=== PATIENT | female | born 1995 | race Caucasian/White ===

== ENCOUNTER 2020-09-12 13:00 | Emergency (ER) | payer OTHER ==
[2020-09-12 13:12] VITALS: BP 135/87; PULSE 77; RESP 18; TEMP 98.7
--- NOTE | 2020-09-12 14:27 | XR ---
EXAMINATION TYPE: XR humerus RT DATE OF EXAM: 09/12/2020 COMPARISON: NONE HISTORY: Pain TECHNIQUE: 2 views submitted. FINDINGS: The osseous structures are intact and the joint spaces are preserved. IMPRESSION: 1. No acute fracture or dislocation.
[2020-09-12] MEDS ORDERED: LIDOCAINE 1% INJ 10MG/ML (20 ML MDV) SQ ONE (15:32)
--- NOTE | 2020-09-12 16:22 | ED ---
General Adult HPI - General Chief complaint: Extremity Problem,Nontraumatic Stated complaint: Arm numbness Time Seen by Provider: 09/12/20 14:00 Source: patient Mode of arrival: ambulatory Limitations: no limitations - History of Present Illness Initial comments: Patient is a 24-year-old female presenting to emergency Department with complaints of right upper arm pain for the last couple days. Patient states she has a control implant in her right upper arm that's been there about a year or longer than it was supposed to be. Patient states that she has yet to follow-up with her SCIENTIFIC SPECIALIST for removal. She denies any fevers or chills, no swelling, redness to the area. She denies any trauma to the right upper arm. No previous surgeries. She has no further complaints at this time. Her vital signs are stable upon arrival. - Related Data Home Medications Medication Instructions Recorded Confirmed No Known Home Medications 09/12/20 09/12/20 Allergies Allergy/AdvReac Type Severity Reaction Status Date / Time No Known Allergies Allergy Verified 09/12/20 14:27 Review of Systems ROS Statement: Those systems with pertinent positive or pertinent negative responses have been documented in the HPI. ROS Other: All systems not noted in ROS Statement are negative. Past Medical History Past Medical History: No Reported History History of Any Multi-Drug Resistant Organisms: None Reported Past Surgical History: Adenoidectomy, Appendectomy, Section, Tonsillectomy Past Psychological History: No Psychological Hx Reported Smoking Status: Current every day smoker Past Alcohol Use History: None Reported Past Drug Use History: None Reported General Exam - General Exam Comments Initial Comments: GENERAL: Patient is well-developed and well-nourished. Patient is nontoxic and in no acute distress. HEAD: Atraumatic, normocephalic. EYES: Pupils equal round and reactive to light, extraocular movements intact, sclera anicteric, conjunctiva are normal. Eyelids were unremarkable. ENT: Nares patent, oropharynx clear without exudates. Moist mucous membranes. NECK: Normal range of motion, supple without lymphadenopathy or JVD. LUNGS: Unlabored respirations. Breath sounds clear to auscultation bilaterally and equal. No wheezes rales or rhonchi. HEART: Regular rate and rhythm without murmurs, rubs or gallops. ABDOMEN: Soft, nontender, normoactive bowel sounds. No guarding, no rebound. No masses appreciated. : Deferred MUSCULOSKELETAL: Patient is full range of motion of her right upper arm and shoulder. Normal extremities with adequate strength and normal range of motion, no pitting or edema. No clubbing or cyanosis. NEUROLOGICAL: Patient is alert and oriented x 3. Normal speech, normal gait. PSYCH: Normal mood, normal affect. SKIN: Warm, Dry, normal turgor, no rashes or lesions noted. Patient has control implanon,in her right upper arm, no evidence of infection, no swelling, no erythema Limitations: no limitations Course Vital Signs 09/12/20 13:09 Temperature 98.7 F Pulse Rate 77 Respiratory 18 Rate Blood Pressure 135/87 O2 Sat by Pulse 100 Oximetry Procedures - Laura Protocol (Time Out) Procedure Performed:: foreign body removal right arm. Performing Provider: Amber Rutledge Nurse: David Sim Timeout Date: 09/12/20 Timeout Time: 16:00 Patient Identification (2 identifiers required): Chart, Verbal, Arm Band, Name, Birthdate Patient/Legal In Classroom Tutor has Confirmed: Identity, Site, Procedure, Consent Site: right bicep Site Marked: Yes Site Verified With Patient/Guardian: Yes - Forgein Body Removal Soft Tissue Consent Obtained: written consent Site: upper extremity (Right upper arm) Anesthetic Used: lidocaine 1% Amount (mLs): 2 Foreign Body Suspected: Other ( control implant) Foreign Body Removed: yes Foreign Body Removal Technique: Forceps Patient Tolerated Procedure: well Additional Comments: Wound require one stitch for closure, 1, 4-0 suture was placed. Medical Decision Making - Medical Decision Making Patient is 24-year-old female here with right upper arm pain, is concerned that her control implants causing the pain. It is a year past overdue for removal. No fevers, x-ray of the right arm reveals no acute abnormalities. Patient did agree for removal, consent was obtained. control implant was removed without any complications. One stitch was placed for closure, she needs to have this removed in 7-10 days. Tolerated procedure well. She stable for discharge. She'll follow up with her primary care physician. Recommend ibuprofen for discomfort, ice to the area. She is in agreement with this plan o f care. Case discussed with Dr. Zapata. Disposition Clinical Impression: Right arm pain, Nexplanon removal Disposition: HOME SELF-CARE Condition: Stable Instructions (If sedation given, give patient instructions): Care For Your Stitches (ED) Additional Instructions: Please return to the Emergency Department if symptoms worsen or any other concerns. Keep area clean and dry. Take Tylenol or ibuprofen for any discomfort, ice to the area. Stitches need to be removed in 7-10 days. Is patient prescribed a controlled substance at d/c from ED?: No Referrals: None,Stated [Primary Care Provider] - 1-2 days
== END 2020-09-12 16:27 | disposition home or self-care (01) ==
LOC: EC 13:00
DX: M79.621 Pain in right upper arm (principal); F17.200 Nicotine dependence, unspecified, uncomplicated; Z45.89 Encounter for adjustment and management of other implanted devices
CPT/HCPCS: 99283 ×2; 10120 ×2; 73060; J2001